=== PATIENT | female | born 1945 | race Caucasian/White ===

== ENCOUNTER 2017-01-07 05:52 | Inpatient (IN) | payer MEDICARE, BC ==
[~2017-01-07] VITALS: Ht 163.8 cm; Wt 67.4 kg
[~2017-01-07 05:52] MED LIST: ACET-1600 PO; ALEN70TA5 PO; ASCO100T5 PO; ASPI-496 PO; ASPI-650 PO; CELE400C PO; CHOL5000 PO; DIAZ10TA PO; ESOM40CA PO; LEVO50TA PO; LISI-167 PO; OXYC-307 PO; TOLT2TAB4 PO; VENL37.52 PO; tylenol pm PO
[2017-01-07] MEDS ORDERED: LACTATED RINGERS 1,000 ML IV SCH (06:18)
[2017-01-07 06:21] VITALS: BP 163/76
[2017-01-07] MEDS ORDERED: MIDAZOLAM 1 MG/ML, 2ML ONE (06:44)
[2017-01-07] MEDS ORDERED: FENTANYL PF 100 MCG/2ML ONE ×3 (06:44→09:01)
[2017-01-07] MEDS ORDERED: PROPOFOL 10 MG/ML, 20ML ONE (06:47)
[2017-01-07] MEDS ORDERED: PROPOFOL 50 ML ONE (06:47)
[2017-01-07] MEDS ORDERED: DEXAMETHASONE 4 MG/ML, 1ML ONE (06:47)
[2017-01-07] MEDS ORDERED: ONDANSETRON 2MG/ML, 2ML ONE (06:47)
[2017-01-07] MEDS ORDERED: TRANEXAMIC ACID 100 MG/ML, 10ML ONE (06:48)
[2017-01-07] MEDS ORDERED: KETOROLAC 60 MG/2 ML ONE (06:48)
[2017-01-07] MEDS ORDERED: ROPIvacaine/PF 0.2%, 20 ML ONE (06:48)
[2017-01-07] MEDS ORDERED: VANCOMYCIN 1,000 MG ONE (06:49)
[2017-01-07] MEDS ORDERED: EPINEPHRINE 1 MG/ML, 1ML ONE (06:49)
[2017-01-07] MEDS ORDERED: PROMETHAZINE 25 MG/ML, 1ML IV PRN (07:00)
[2017-01-07] MEDS ORDERED: HYDROcodone/APAP 7.5-325MG/15ML UDC PO PRN (07:00)
[2017-01-07] MEDS ORDERED: OXYcodone 5 MG/5 ML ORAL.SOL UDC PO PRN (07:00)
[2017-01-07] MEDS ORDERED: HYDROmorphone 1 MG/ML, 1ML IV PRN ×2 (07:00→09:30)
[2017-01-07] MEDS ORDERED: FENTANYL PF 100 MCG/2ML IV PRN (07:00)
[2017-01-07] MEDS ORDERED: ONDANSETRON 2MG/ML, 2ML IVPush PRN (07:00)
[2017-01-07 07:03] LABS: BLOOD UREA NITROGEN 32 mg/dL (7-18)
[2017-01-07 07:06] LABS: ASPARTATE AMINO TRANSFERASE 9 U/L (15-37)
[2017-01-07] MEDS ORDERED: CEFAZOLIN 1,000 MG ONE (07:06)
[2017-01-07] MEDS ORDERED: PHENYLEPHRINE 10 MG/ML ONE (07:06)
[2017-01-07] MEDS ORDERED: ACETAMINOPHEN 650 MG/20.3 ML UDC ONE (09:01)
[2017-01-07] MEDS ORDERED: OXYcodone 5 MG/5 ML ORAL.SOL UDC ONE (09:01)
[2017-01-07] MEDS: D5%-0.45% NACL 1,000 ML IV SCH ×2 (09:02→18:38)
[2017-01-07] MEDS ORDERED: TRANEXAMIC ACID 1,000 MG in SODIUM CHLORIDE 0.9% 100 ML IVPB ONE (09:15)
[2017-01-07] MEDS: ACETAMINOPHEN 325 MG TABLET PO PRN (09:24)
[2017-01-07] MEDS ORDERED: LIDOCAINE GEL 2%, 5ML ONE (09:24)
[2017-01-07] MEDS ORDERED: SENNA/DOCUSATE TABLET PO PRN (09:30)
[2017-01-07] MEDS ORDERED: PROMETHAZINE 25 MG/ML, 1ML IM PRN (09:30)
[2017-01-07] MEDS ORDERED: DIPHENHYDRAMINE 25 MG CAPSULE PO PRN (09:30)
[2017-01-07] MEDS: ACETAMINOPHEN 650 MG/20.3 ML UDC PO SCH ×2 (09:30→17:57)
[2017-01-07] MEDS ORDERED: ALUMINUM/MAG/SIMETHICONE 30 ML UDC PO PRN (09:30)
[2017-01-07] MEDS ORDERED: ONDANSETRON 2MG/ML, 2ML IV PRN (09:30)
[2017-01-07] MEDS ORDERED: PROMETHAZINE 12.5 MG SUPP PR PRN (09:30)
[2017-01-07] MEDS ORDERED: CEFAZOLIN PMX 1GM/50ML 50 ML IVPB SCH (09:30)
[2017-01-07] MEDS ORDERED: ZOLPIDEM 5MG TABLET PO PRN (09:30)
[2017-01-07] MEDS ORDERED: ONDANSETRON 4 MG TABLET PO PRN (09:30)
[2017-01-07] MEDS ORDERED: BISACODYL 10 MG SUPP PR PRN (09:30)
[2017-01-07] MEDS ORDERED: LORazepam 1MG TABLET PO PRN (09:30)
[2017-01-07] MEDS ORDERED: DIAZEPAM 5 MG TABLET PO PRN (09:30)
[2017-01-07] MEDS ORDERED: MAGNESIUM HYDROXIDE 8%, 30ML UDC PO PRN (09:30)
[2017-01-07] MEDS ORDERED: MEPERIDINE/PF 25MG/0.5ML ONE (09:46)
[2017-01-07] MEDS ORDERED: MEPERIDINE/PF 25MG/0.5ML IVPush PRN (10:00)
[2017-01-07] MEDS ORDERED: ACETAMINOPHEN 500 MG TABLET ONE (11:39)
[2017-01-07] MEDS: TAMSULOSIN 0.4 MG CAP.ER.24H PO SCH (11:44)
[2017-01-07 14:57] VITALS: BP 96/59
[2017-01-07] MEDS: CEFAZOLIN PMX 1GM/50ML 50 ML IVPB SCH ×2 (15:14→23:26)
[2017-01-07] MEDS ORDERED: ASPIRIN 81 MG TABLET EC PO SCH (18:00)
[2017-01-07 20:32] VITALS: BP 116/69
[2017-01-07] MEDS: OXYcodone IR 5MG TABLET PO PRN (21:38)
[2017-01-07] MEDS: ASCORBIC ACID 500 MG TABLET PO SCH (21:38)
[2017-01-07] MEDS: DOCUSATE 100 MG CAPSULE PO SCH (21:38)
[2017-01-08 00:20] VITALS: BP 110/58
[2017-01-08] MEDS: OXYcodone IR 5MG TABLET PO PRN ×3 (01:30→10:27)
[2017-01-08] MEDS: ACETAMINOPHEN 650 MG/20.3 ML UDC PO SCH ×2 (01:30→10:27)
[2017-01-08] MEDS: ACETAMINOPHEN 325 MG TABLET PO PRN (01:30)
[2017-01-08 04:12] VITALS: BP 97/60
[2017-01-08] MEDS: D5%-0.45% NACL 1,000 ML IV SCH (05:30)
[2017-01-08] MEDS ORDERED: DEXAMETHASONE 4 MG/ML, 1ML IVPush SCH (06:00)
[2017-01-08] MEDS ORDERED: RIVAROXABAN 10 MG TABLET PO SCH (06:00)
[2017-01-08] MEDS ORDERED: LEVOTHYROXINE 50 MCG TABLET PO SCH (06:00)
[2017-01-08] MEDS ORDERED: OMEPRAZOLE 20 MG CAPSULE.DR PO SCH (07:30)
[2017-01-08 07:50] VITALS: BP 112/64
[2017-01-08] MEDS: DOCUSATE 100 MG CAPSULE PO SCH (08:03)
[2017-01-08] MEDS: TAMSULOSIN 0.4 MG CAP.ER.24H PO SCH (08:03)
[2017-01-08] MEDS ORDERED: CHOLECALCIFEROL 1,000 UNIT TABLET PO SCH (09:00)
[2017-01-08] MEDS ORDERED: VENLAFAXINE 37.5MG TABLET PO SCH (09:00)
[2017-01-08] MEDS ORDERED: LISINOPRIL 10 MG TABLET PO SCH (09:00)
[2017-01-08] MEDS ORDERED: TOLTERODINE LA 4MG CAP.ER.24H PO SCH (09:00)
[2017-01-08] MEDS: ASCORBIC ACID 500 MG TABLET PO SCH (09:00)
[2017-01-08] MEDS ORDERED: KETOROLAC 30 MG/1 ML IV SCH (09:30)
[2017-01-08] MEDS ORDERED: OXYC5CAP2 PO (10:23)
[2017-01-08 11:10] VITALS: BP 100/59
== END 2017-01-08 11:37 | disposition home or self-care (01) | DRG 470 ==
LOC: ORIP 05:52 → 4NOR 10:26 → DCLOUNGE 01-08 11:09
PROVIDERS: ADMIT Orthopaedic Surgery; ATTEND Orthopaedic Surgery
PROC: 0SR902A Replacement of Right Hip Joint with Metal on Polyethylene Synthetic Substitute, Uncemented, Open Approach (ICD-10-PCS; principal; 2017-01-07 07:30)
DX: M16.11 Unilateral primary osteoarthritis, right hip (principal); E03.9 Hypothyroidism, unspecified; I10 Essential (primary) hypertension; K21.9 Gastro-esophageal reflux disease without esophagitis; M81.0 Age-related osteoporosis without current pathological fracture; Q65.89 Other specified congenital deformities of hip; F32.9 Major depressive disorder, single episode, unspecified; G47.9 Sleep disorder, unspecified
CPT/HCPCS: 36415; 72170; 80053; 85018; 86850; 86900; C1713; J0171; J0690; J1100; J1885; J2175; J2250; J2405; J2704; J2795; J3010; J3370; C1776; J2370; J7120